=== PATIENT | female | born 1945 | race Two or more races ===

== ENCOUNTER 2019-05-25 14:23 | Outpatient (CLI) | payer OTHER | END 2019-05-25 14:30 | disposition home or self-care (01) | LOC: LAB 14:23 | DX: E21.2 Other hyperparathyroidism (principal); E55.9 Vitamin D deficiency, unspecified; M85.88 Other specified disorders of bone density and structure, other site; E88.89 Other specified metabolic disorders; M81.8 Other osteoporosis without current pathological fracture; E56.1 Deficiency of vitamin K ==

== ENCOUNTER 2019-05-25 15:16 | Outpatient (CLI) | payer OTHER | END 2019-05-25 15:26 | disposition home or self-care (01) | LOC: RAD 15:16 | DX: M25.552 Pain in left hip (principal); M25.561 Pain in right knee; M25.562 Pain in left knee; M79.604 Pain in right leg ==

== ENCOUNTER 2019-05-31 10:58 | Outpatient (CLI) | payer OTHER | END 2019-05-31 11:00 | disposition home or self-care (01) | LOC: MAMO-SONO 10:58 | DX: Z12.31 Encounter for screening mammogram for malignant neoplasm of breast (principal); Z87.898 Personal history of other specified conditions; M54.5 Low back pain; M25.552 Pain in left hip; M25.562 Pain in left knee; M25.571 Pain in right ankle and joints of right foot; M62.838 Other muscle spasm; N63.10 Unspecified lump in the right breast, unspecified quadrant; N63.20 Unspecified lump in the left breast, unspecified quadrant ==